=== PATIENT | female | born 1965 | race Caucasian/White ===

== ENCOUNTER 2018-06-26 20:00 | Emergency (ER) | payer OTHER ==
[~2018-06-26] VITALS: Ht 165.1 cm; Wt 74.8 kg
[2018-06-26] MEDS ORDERED: PROGESTERONE100 MG (20:16)
[2018-06-26] MEDS ORDERED: ESTROGEN (20:16)
[2018-06-26 20:33] LABS: ABSOLUTE BASOPHILS 0.1 thou/uL (0.0-0.2); ABSOLUTE EOSINOPHILS 0.1 thou/uL (0.0-0.7); ABSOLUTE LYMPHOCYTES 2.3 thou/uL (0.8-5.3); ABSOLUTE MONOCYTES 0.5 thou/uL (0.0-1.2); ABSOLUTE NEUTROPHILS 3.3 thou/uL (1.6-8.1); BASOPHILS 0.9 %; EOSINOPHILS 2.3 %; HEMATOCRIT 45.9 % (37.0-47.0); HEMOGLOBIN 15.7 gm/dL (12.0-15.0); LYMPHOCYTES 36.3 %; MCH 32.9 pg (26.0-34.0); MCHC 34.2 g/dL (28.0-37.0); MONOCYTES 8.3 %; MPV 8.2 fl. (7.2-11.1); NUCLEATED RBCS 0 /100WBC; PLATELET COUNT* 250 thou/uL (150-400); POLYS 52.2 %; RBC 4.78 mil/uL (4.20-5.00); RDW-CV 12.8 % (10.5-14.5); WBC 6.4 thou/uL (4.0-11.0)
[2018-06-26 20:46] LABS: ANION GAP 5 mmol/L (7-16); BUN 14 mg/dL (7-18); CALCIUM 9.1 mg/dL (8.5-10.1); CHLORIDE 101 mmol/L (98-107); CO2 30 mmol/L (21-32); GLUCOSE 95 mg/dL (70-99); POTASSIUM 3.6 mmol/L (3.5-5.1); SODIUM 136 mmol/L (136-145)
[2018-06-26 20:53] LABS: ALBUMIN 4.2 g/dL (3.4-5.0); ALKALINE PHOSPHATASE 86 U/L (46-116); LIPASE 309 U/L (73-393); NT-PRO BRAIN NAT PEPTIDE 20 pg/mL (<300); SGOT 18 U/L (15-37); SGPT 27 U/L (30-65); TOTAL BILIRUBIN 0.3 mg/dL (<0.1-1.0); TOTAL PROTEIN 7.7 g/dL (6.4-8.2); TROPONIN-I LEVEL <0.06 ng/mL (<0.06)
[2018-06-26 21:45] LABS: URINE BILIRUBIN NEGATIVE (Negative); URINE BLOOD NEGATIVE (Negative); URINE CLARITY CLEAR; URINE COLOR YELLOW; URINE GLUCOSE-RANDOM NEGATIVE (Negative); URINE KETONES NEGATIVE (Negative); URINE LEUKOCYTES-REFLEX TRACE (Negative); URINE NITRITE-REFLEX NEGATIVE (Negative); URINE PROTEIN NEGATIVE (Negative); URINE UROBILINOGEN 0.2 E.U./dl (0.2-1.0)
[2018-06-26 21:51] LABS: CASTS None Seen /LPF (None Seen); CRYSTALS None Seen /LPF (None Seen); SQUAMOUS >10 Many /LPF (0-3); URINE RBC 3-10 Few /HPF (0-2); URINE WBC-REFLEX 6-15 Few /HPF (0-5)
[2018-06-26] MEDS ORDERED: REGLAN 10 MG TA10 MG PO (22:38)
[2018-06-26] MEDS ORDERED: BENTYL 10 MG CA10 M1 PO (22:38)
[2018-06-26] MEDS ORDERED: CARAFATE 1 GM TA1 GM PO (22:38)
[2018-06-26] MEDS ORDERED: PRILOSEC OTC20 MG PO (22:38)
[2018-06-26 23:03] VITALS: BP 100/57
--- NOTE | 2018-06-27 11:37 | EKG ---
[place] [address] ELECTROCARDIOGRAM REPORT Name: ERICA PANDEY Room: [facility]#: [id number] Admission: 06/26/18 Attend Phys: Discharge: 06/26/18 Date of : 63 Report #: [id number] THIS REPORT FOR: //name// [facility] ED Test Date: 2018-06-26 Test Time: 20:04:30 Pat Name: ERICA PANDEY Department: Room: Gender: F Dinkey Brakeman: YVONNE : 1965 Requested By: Grace Cabrera Order Number: [id number] MD: Stahya Copeland Measurements Intervals [place] Rate: 70 P: 28 SD: 137 QRS: 13 QRSD: 91 T: 46 QT: 374 QTc: 404 Interpretive Statements Sinus rhythm Abnormal R-wave progression, early transition No previous ECG available for comparison Electronically Signed On 06-27-2018 11:37:25 CDT by Sathya Copeland [email or web address] <ELECTRONICALLY SIGNED> By: Sathya Copeland MD, [facility] 06/27/18 1137 2004 03 Sathya Copeland MD, FACC /EPI
== END 2018-06-26 23:04 | disposition home or self-care (01) ==
LOC: M.ERS 20:00
PROVIDERS: Emergency Medicine
DX: K31.0 Acute dilatation of stomach (principal); R10.13 Epigastric pain

== ENCOUNTER → 2020-10-01 | Outpatient (CLI) | payer OTHER ==
[~2020-10-01] MED LIST: BENTYL 10 MG CA10 M1 PO; CARAFATE 1 GM TA1 GM PO; ESTROGEN; PRILOSEC OTC20 MG PO; PROGESTERONE100 MG; REGLAN 10 MG TA10 MG PO
== END ==
LOC: M.ULTRA 09:30
PROVIDERS: ATTEND Nurse Practitioner Family
DX: R59.0 Localized enlarged lymph nodes (principal)